=== PATIENT | male | born 1980 | race African-American/Black ===

== ENCOUNTER 2019-12-07 14:58 | Emergency (ER) | payer BC, MEDICAID ==
[~2019-12-07] VITALS: Ht 162.6 cm; Wt 97.5 kg
[2019-12-07 15:20] VITALS: BP 137/91
[2019-12-07] MEDS ORDERED: IBUPROFEN 800 MG TAB PO ONE (16:15)
== END 2019-12-07 16:54 | disposition home or self-care (01) ==
LOC: ER 14:58 → EDBD 14:58 → ER 16:54
DX: S83.91XA Sprain of unspecified site of right knee, initial encounter (principal); X50.1XXA Overexertion from prolonged static or awkward postures, initial encounter; Y93.89 Activity, other specified; Y92.89 Other specified places as the place of occurrence of the external cause; Y99.8 Other external cause status
CPT/HCPCS: 73562

== ENCOUNTER 2020-11-09 17:36 | Emergency (ER) | payer BC, MEDICAID ==
[~2020-11-09] VITALS: Ht 160 cm; Wt 95.3 kg
[2020-11-09 17:36] VITALS: BP 151/91
== END 2020-11-09 20:07 | disposition home or self-care (01) ==
LOC: ER 17:37
DX: F20.9 Schizophrenia, unspecified (principal); Z76.0 Encounter for issue of repeat prescription

== ENCOUNTER 2024-03-27 20:02 | Emergency (ER) | payer OTHER, MEDICAID ==
[~2024-03-27] VITALS: Ht 175.3 cm; Wt 77.3 kg
[~2024-03-27 20:02] MED LIST: IBUP-1456 PO
[2024-03-27] MEDS ORDERED: OLAN1TAB75 PO (22:36)
[2024-03-27] MEDS ORDERED: CHLO100T12 PO (22:36)
[2024-03-27] MEDS ORDERED: BENZ1TAB6 PO (22:36)
[2024-03-27 22:55] VITALS: BP 164/110; PULSE 85; RESP 15; TEMP 98.2; O2SAT 99
== END 2024-03-27 22:53 | disposition home or self-care (01) ==
LOC: ER 20:02
DX: S52.292D Other fracture of shaft of left ulna, subsequent encounter for closed fracture with routine healing (principal); F20.9 Schizophrenia, unspecified; Z76.0 Encounter for issue of repeat prescription; Z79.899 Other long term (current) drug therapy; X58.XXXD Exposure to other specified factors, subsequent encounter

== ENCOUNTER 2024-04-01 21:47 | Emergency (ER) | payer OTHER, MEDICAID ==
[~2024-04-01] VITALS: Ht 177.8 cm; Wt 86.4 kg
[~2024-04-01 21:47] MED LIST changes: +BENZ1TAB6 PO; +CHLO100T12 PO; +OLAN1TAB75 PO
[2024-04-01 22:30] VITALS: TEMP 98
[2024-04-02 00:43] LABS: Basophils # (auto) 0 10 ^3/uL (0-0.2); Basophils % (auto) 0.5 % (0.0-2.0); Eosinophils # (auto) 0.6 10 ^3/uL (0-0.8); Eosinophils % (auto) 12.1 % (0.0-7.0); Hematocrit 50.1 % (41.0-53.0); Hemoglobin 16.9 g/dL (13.5-17.5); Lymphocytes # (auto) 1.6 10 ^3/uL (0.4-5.4); Lymphocytes % (auto) 31.9 % (10.0-50.0); Mean Corpuscular Hemoglobin 32.9 pg (28.0-32.0); Mean Corpuscular Hgb Conc. 33.7 g/dL (32.0-36.0); Mean Corpuscular Volume 97.7 fL (80.0-100.0); Monocytes # (auto) 0.5 10 ^3/uL (0-1.3); Monocytes % (auto) 10.4 % (0.0-12.0); Neutrophils # (auto) 2.3 10 ^3/uL (1.6-8.6); Neutrophils % (auto) 45.1 % (37.0-80.0); Nucleated Red Blood Cells % 0.2 %; Platelet Count (auto) 249 10^3/uL (140-450); Red Blood Cells 5.13 10^6/uL (4.5-5.90); Red Cell Distribution Width 13.4 % (11.8-14.3); White Blood Cell 5.1 10^3/uL (4.4-10.8)
[2024-04-02 01:37] LABS: Amphetamine Screen, Urine Neg (NEGATIVE); Barbiturate Scree,Urine Neg (NEGATIVE); Benzodiazephine Screen, Urine Neg (NEGATIVE); Cannabinoid Screen, Urine Neg (NEGATIVE); Cocaine Screen, Urine Neg (NEGATIVE); Opiate Scree,Urine Neg (NEGATIVE); Phencyclidine Screen, Urine Neg (NEGATIVE)
[2024-04-02 01:40] LABS: Alanine Aminotransferase 16 U/L (7-40); Albumin 4.3 g/dL (3.2-4.8); Alkaline Phosphatase 88 U/L (46-116); Anion Gap 13 (5-15); Aspartate Aminotransferase 24 U/L (13-40); BUN/Creatinine Ratio 7.3 (10.0-20.0); Bilirubin, Total 0.6 mg/dL (0.2-1.0); Blood Urea Nitrogen 8 mg/dL (9-23); Calcium 9.6 mg/dL (8.7-10.4); Carbon Dioxide 22 mmol/L (20-30); Chloride 106 mmol/L (98-107); Glucose 67 mg/dL (74-106); Potassium 3.7 mmol/L (3.5-5.1); Sodium 141 mmol/L (136-145); Total Protein 8.3 g/dL (5.7-8.2)
[2024-04-02 01:58] LABS: Urine Bacteria FEW /hpf (None Seen); Urine Blood Negative /uL (Negative); Urine Clarity Clear (Clear); Urine Color Yellow (Yellow); Urine Hyaline Cast FEW /lpf (0 - 2); Urine Mucus FEW (None Seen); Urine Protein, UAD 1+ (Negative); Urine Specific Gravity 1.033 (1.001-1.035); Urine Urobilinogen 2 mg/dL (Negative); Urine WBC 5 /hpf (0 - 3); Urine pH 5.5 (5.0-9.0)
[2024-04-02 04:45] LABS: Acetaminophen < 2.0 UG/ML (10.0-20.0)
[2024-04-02 05:04] LABS: Salicylate < 3.0 mg/dL (2.8-20.0)
[2024-04-02 08:00] VITALS: BP 141/85; PULSE 88; RESP 18; O2SAT 96
== END 2024-04-02 09:42 | disposition left against medical advice (07) ==
LOC: ER 21:47 → EDBD 21:47 → ER 04-02 09:42
DX: F20.2 Catatonic schizophrenia (principal); R40.4 Transient alteration of awareness; Z79.899 Other long term (current) drug therapy
CPT/HCPCS: 36415; 71045; 80053; 80307; 80320; 80329; 81001; 84484; 85025; 93005